=== PATIENT | male | born 1980 | race Two or more races ===

== ENCOUNTER 2021-04-29 12:27 | Emergency (ER) | payer MEDICAID ==
[~2021-04-29] VITALS: Ht 170.2 cm; Wt 92.1 kg
--- NOTE | 2021-04-29 14:09 | NUR ---
pt was triaged but left before ermd eval.
--- NOTE | 2021-04-29 14:21 | NUR ---
pt came back, ambulatory to er bed 03 c/o ble swelling x 2-3 weeks. pt states been hiking lately when he started noticing his lower extremity being swollen. pt denies sob or chest pain. stable vitals noted. awaiting romario saenz.
--- NOTE | 2021-04-29 14:30 | NUR ---
dr tai at bedside for eval.
--- NOTE | 2021-04-29 14:37 | NUR ---
radiology at bedside for chest xray.
--- NOTE | 2021-04-29 14:45 | NUR ---
iv line started blood drawn. 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
--- NOTE | 2021-04-29 15:18 | NUR ---
u/s tech at bedside for ble duplex ultrasound.
[2021-04-29 15:20] LABS: BASOPHILS % (AUTO) 0.5 % (0.0-2.0); EOSINOPHILS % (AUTO) 5.1 % (0.0-6.0); HEMATOCRIT 50 % (39-51); HEMOGLOBIN 16.9 g/dL (13.5-17.5); LYMPHOCYTES % (AUTO) 40.1 % (20.0-44.0); MEAN CORPUSCULAR HGB CONC 34 g/dl (31.0-36.0); MEAN CORPUSCULAR VOLUME 95 fL (80-96); MONOCYTES # (AUTO) 0.6 K/uL (0.1-1.30); MONOCYTES % (AUTO) 8.1 % (2.0-12.0); NEUTROPHILS # (AUTO) 3.4 K/uL (1.8-8.9); NEUTROPHILS % (AUTO) 46.2 % (43.0-81.0); PLATELET COUNT (AUTO) 212 K/uL (150-450); RED BLOOD CELL COUNT(AUTO) 5.23 MIL/uL (4.5-6.0); WHITE BLOOD COUNT (AUTO) 7.4 K/uL (4.3-11.0)
[2021-04-29 16:07] LABS: CALCIUM, SERUM 8.7 mg/dL (8.5-10.1); CARBON DIOXIDE 28 mmol/L (21-32); CHLORIDE 101 mmol/L (98-107); CREATININE 0.8 mg/dL (0.6-1.3); GLUCOSE 87 mg/dL (74-106); POTASSIUM 4.6 mmol/L (3.5-5.1); SODIUM SERUM 136 mmol/L (136-145); UREA NITROGEN, BLOOD 9 mg/dL (7-18)
[2021-04-29 16:17] LABS: ALANINE AMINOTRANSFERASE 53 U/L (12-78); ALBUMIN 3.8 g/dL (3.4-5.0); ALKALINE PHOSPHATASE 67 U/L (46-116); ASPARTATE AMINOTRANSFERASE 49 U/L (15-37); BILIRUBIN,TOTAL 0.6 mg/dL (0.2-1.0); TOTAL PROTEIN, SERUM 7.9 g/dL (6.4-8.2)
[2021-04-29] MEDS ORDERED: FURO-145 PO (16:30)
--- NOTE | 2021-04-29 16:40 | NUR ---
Patient discharged to home in stable condition. Written and verbal after care instructions given. Patient verbalizes understanding of instruction.IV removed. Catheter intact and site benign. Pressure and 4x4 applied to site. No bleeding noted.
[2021-04-29 17:02] VITALS: BP 123/82
== END 2021-04-29 17:03 | disposition home or self-care (01) ==
LOC: ER 12:33
DX: R60.0 Localized edema (principal); Z60.2 Problems related to living alone; Z79.01 Long term (current) use of anticoagulants
CPT/HCPCS: 36415; 71045-TC; 80048-TC; 80076-TC; 83880; 84484-TC; 85025-TC; 85730-TC; 93970-TC